=== PATIENT | female | born 1980 | race Two or more races ===

== ENCOUNTER → 2025-11-11 | Outpatient (CLI) | payer MEDICAID, SELFPAY ==
--- NOTE | 2025-11-11 14:00 | XR_ITS ---
Examination: Breast ultrasound, unilateral, right Date and time of exam: November 11, 2025, 1451 hours INDICATIONS: Outside mammogram August 25, 2025 8 mm mass 12 o'clock position right breast Technique: Real-time anderson scale ultrasonographic imaging performed right breast including all 4 quadrants as well as nipple retroareolar and axillary region. Findings: Benign cysts, the largest in the 12 o'clock position 8 x 5 mm No solid nodules IMPRESSION: BI-RADS Category 2: Benign findings
--- NOTE | 2025-11-11 14:30 | XR_ITS ---
Examination: Diagnostic digital mammography, unilateral, right Computer aided detection 3-D breast Tomosynthesis, unilateral Date and time of exam: November 11, 2025, 1509 hours INDICATIONS: Outside mammogram August 25, 2025 8 mm mass right breast 12 o'clock position Technique: Nonmagnified MLO, CC views of the right breast have been obtained, reconstructed from 3-D Tomosynthesis images. R2 computer aided detection program utilized for evaluation of suspicious masses and/or abnormal calcifications. 3-D Tomosynthesis images obtained. Findings: Scattered areas of fibroglandular density. Circumscribed 8 mm mass in the right breast, likely upper right breast on the MLO view, likely corresponding to the 12:00 cyst described on right breast sonogram today Impression: BI-RADS category 3: Probably benign findings Recommend 1 additional 6-month right mammogram follow-up
== END | disposition home or self-care (01) ==
LOC: CDIM 14:33
PROVIDERS: PCP Physician Assistant; Referring Provider Physician Assistant; Visit Provider Physician Assistant
DX: R92.331 Mammographic heterogeneous density, right breast (principal)
CPT/HCPCS: 76641; 77061; 77065; G0279